=== PATIENT | male | born 1990 | race Caucasian/White ===

== ENCOUNTER 2023-03-27 14:16 | Outpatient (CLI) | payer OTHER | END 2023-03-27 14:17 | disposition home or self-care (01) | LOC: DI 14:16 | PROVIDERS: ATTEND Nurse Practitioner Family | DX: Z53.9 Procedure and treatment not carried out, unspecified reason (principal) ==

== ENCOUNTER 2023-04-05 13:12 | Outpatient (CLI) | payer OTHER ==
--- NOTE | 2023-04-07 09:48 | MRI Report ---
PROCEDURE: SHOULDER WO - RT INDICATIONS: RIGHT SHOULDER PAIN TECHNIQUE: Noncontrast oblique coronal T2 fast spin echo with fat saturation, oblique sagittal T1 spin echo and T2 fast spin echo with fat saturation, axial T1 spin echo and T2 fast spin echo with fat saturation t hrough the shoulder. COMPARISON: None. FINDINGS: Image quality: Excellent. Rotator cuff: Low-grade articular and bursal surface partial-thickness tear involving distal supraspi natus at its insertion on humeral head is seen extending to muscular tendinous junction. The infraspi natus tendinosis at its insertion on humeral head is seen. Distal subscapularis tendinosis is also se en. No full-thickness rotator cuff tendon rupture. No rotator cuff muscle atrophy on sagittal images. Bones and bursae: No bone marrow contusions or fractures. Mild acromioclavicular joint osteoarthriti c changes are seen with joint space narrowing and subchondral sclerosis. Small downward osteophyte fo rmation in acromioclavicular joint is seen depressing on musculotendinous junction of supraspinatus. The acromion demonstrates conventional anatomy, without an os acromiale. Small amount of subacromial subdeltoid bursal fluid is noted. Capsule and soft tissues: In the absence of intra-articular contrast, the labrum and glenohumeral li gaments appear intact. The long head of the biceps tendon demonstrates normal location and morpholog y. The rotator interval appears normal, without fibrosis. The coracohumeral ligament is normal in t hickness. IMPRESSION: 1. Low-grade articular and bursal surface partial-thickness tear involving distal supraspinatus exten ding to muscular tendinous junction. Distal infraspinatus and subscapularis tendinosis. No full-thick ness rotator cuff tendon rupture. No muscle atrophy. 2. Mild acromioclavicular joint osteoarthritis. No fracture or dislocation. 3. No gross focal labral tear. Reviewed by: Darius Davis MD on 04/07/2023 9:46 AM PST Approved by: Darius Davis MD on 04/07/2023 9:46 AM PST Station ID: [id number]
== END 2023-04-05 13:13 | disposition home or self-care (01) ==
LOC: DI 13:12
PROVIDERS: ATTEND Nurse Practitioner Family
DX: M75.111 Incomplete rotator cuff tear or rupture of right shoulder, not specified as traumatic (principal); M19.011 Primary osteoarthritis, right shoulder